=== PATIENT | female | born 1955 | race Caucasian/White ===

== ENCOUNTER 2018-07-03 10:12 | Day surgery (SDC) | payer OTHER ==
[2018-07-03 10:59] VITALS: BMI 34.0
[2018-07-03] MEDS ORDERED: Lactated Ringer's 1,000 ML IV ONE (12:30)
[2018-07-03] MEDS ORDERED: Propofol 10 mg/ml Inj (20 ML) ONE (12:34)
[2018-07-03] MEDS ORDERED: Simethicone 40 mg/0.6 ml Liquid (30 ml) ONE (12:57)
[2018-07-03] MEDS ORDERED: Lactated Ringer's 500 ML IV SCH (13:00)
[2018-07-03 13:32] VITALS: TEMP 97; O2SAT 100
[2018-07-03 14:08] VITALS: BP 121/86; PULSE 81; RESP 18
== END 2018-07-03 15:26 | disposition home or self-care (01) ==
LOC: C.ENDO 10:12
PROVIDERS: ATTEND Internal Medicine Gastroenterology
DX: K62.1 Rectal polyp (principal); D3A.8 Other benign neuroendocrine tumors; K64.8 Other hemorrhoids; K57.90 Diverticulosis of intestine, part unspecified, without perforation or abscess without bleeding
CPT/HCPCS: 45380; 82948; 88305; J2704; J3010; J7120